=== PATIENT | female | born 1995 | race African-American/Black ===

== ENCOUNTER 2022-10-07 13:59 | Emergency (ER) | payer MEDICAID, OTHER ==
[~2022-10-07] VITALS: Ht 165.1 cm; Wt 61.0 kg
[2022-10-07] MEDS ORDERED: LEVETIRACETAM 1000MG PREMIX 100 ML IV ONE (15:00)
[2022-10-07 15:06] LABS: BASOPHILS % 0.1 % (0.0-2.0); EOSINOPHILS % 0.2 % (0.0-5.0); HEMATOCRIT. 37.2 % (36.0-48.0); HEMOGLOBIN. 12.6 g/dL (12.0-16.0); LYMPHOCYTES % 12.6 % (20.0-50.0); MEAN CORPUSCULAR HEMOGLOBIN 32.8 pg (28.0-32.0); MEAN CORPUSCULAR VOLUME 96.7 fL (81.0-99.0); MEAN PLATELET VOLUME 8.8 fl (7.4-10.4); MONOCYTES % 7.4 % (2.0-8.0); NEUTROPHILS % 79.7 % (40.0-76.0); PLATELET 128 x1000/uL (130-400); RED BLOOD CELL COUNT 3.85 mill/uL (4.2-5.4); RED CELL DISTRIBUTION WIDTH 16.4 % (11.6-14.6)
[2022-10-07 15:09] LABS: CHLORIDE 108 mEq/L (98-107)
[2022-10-07 15:25] LABS: HCG SCREEN NEGATIVE
[2022-10-07] MEDS ORDERED: ONDANSETRON HCL 4MG/2ML INJ IV NR (16:15)
[2022-10-07 16:30] VITALS: BP 129/77
[2022-10-07] MEDS ORDERED: KEPP500 MT (16:44)
== END 2022-10-07 17:12 | disposition home or self-care (01) ==
LOC: ER 13:59
DX: S00.511A Abrasion of lip, initial encounter (principal); G40.909 Epilepsy, unspecified, not intractable, without status epilepticus; F12.90 Cannabis use, unspecified, uncomplicated; Z88.6 Allergy status to analgesic agent; X58.XXXA Exposure to other specified factors, initial encounter; Y93.89 Activity, other specified; Y92.89 Other specified places as the place of occurrence of the external cause; Y99.8 Other external cause status
CPT/HCPCS: 36415; 80053; 84703; 85025; 96365; 99284; J1953; J2405; Z7610

== ENCOUNTER 2024-12-16 15:50 | Emergency (ER) | payer MEDICAID ==
[~2024-12-16] VITALS: Ht 167.6 cm; Wt 62.0 kg
[~2024-12-16 15:50] MED LIST: KEPP500 MT
[2024-12-16 15:52] VITALS: O2SAT 100
[2024-12-16] MEDS: VISCOUS LIDOCAINE 2% 15 ML UDC MM STA (16:53)
[2024-12-16] MEDS: KETOROLAC 30MG/ML VIAL IM ONE (16:53)
[2024-12-16] MEDS: TETRACAINE/BENZOCAINE/BUTAMBEN 20 GM SPRAY MM SCH (17:01)
[2024-12-16 17:21] LABS: CLARITY URINE CLOUDY (CLEAR); COLOR URINE DARK YELLOW (YELLOW); GLUCOSE URINE NEGATIVE (NEGATIVE); KETONES URINE 1+ (NEGATIVE); LEUKOCYTE ESTERASE URINE 1+ (NEGATIVE); NITRITE URINE NEGATIVE (NEGATIVE); OCCULT BLOOD URINE 3+ (NEGATIVE); PH URINE 6.0 (4.5-8.0); PROTEIN URINE 2+ (NEGATIVE); SPECIFIC GRAVITY URINE 1.030 (1.005-1.030); UROBILINOGEN URINE 2.0 E.U./dL (0.2-1.0)
[2024-12-16] MEDS: SODIUM CHLORIDE 0.9% 1,000 ML IV ONE ×2 (17:45→22:50)
[2024-12-16 18:08] LABS: HEMATOCRIT. 35.2 % (36.0-48.0); HEMOGLOBIN. 11.8 g/dL (12.0-16.0); MEAN PLATELET VOLUME 8.4 fl (7.4-10.4); PLATELET 132 x1000/uL (130-400); RED BLOOD CELL COUNT 3.61 mill/uL (4.2-5.4); RED CELL DISTRIBUTION WIDTH 15.6 % (11.6-14.6)
[2024-12-16 18:20] LABS: CREATININE 1.1 mg/dL (0.6-1.0); UREA NITROGEN BLOOD 10 mg/dL (9-23)
[2024-12-16 18:22] LABS: ASPARTATE AMINOTRANSFERASE 62 IU/L (<34); BILIRUBIN DIRECT 0.2 mg/dL (<=3.0); BILIRUBIN TOTAL 0.5 mg/dL (0.1-1.0); PROTEIN TOTAL 7.5 g/dL (6.0-8.3)
[2024-12-16 18:37] LABS: BACTERIA URINE 1+; RBC URINE TNTC /hpf (0-2); SQUAMOUS EPITHELIAL CELL URINE 1+ /lpf (RARE/1+)
[2024-12-16] MEDS ORDERED: POTASSIUM CHLORIDE 30 MEQ in DEXT 5%/0.9% NACL 985 ML IV SCH (19:00)
[2024-12-16 19:12] LABS: EOSINOPHILS % MANUAL 1.0 % (0.0-5.0); LYMPHOCYTES % MANUAL 35.0 % (20.0-60.0); MONOCYTES % MANUAL 14.0 % (2.0-8.0); NEUTROPHILS % MANUAL 50.0 % (45.0-75.0); PLATELET ESTIMATE NORMAL
[2024-12-16] MEDS: KCL 10MEQ/50ML X 3 FOR TOTAL KCL 30MEQ/150ML IV SCH (20:17)
[2024-12-16 20:40] VITALS: BP 145/68; PULSE 72; RESP 20; TEMP 37.3; O2SAT 100
[2024-12-17] MEDS ORDERED: AMOX200S10 MT (00:56)
[2024-12-17] MEDS ORDERED: IBUP-2458 MT (00:56)
[2024-12-17] MEDS ORDERED: ACET-2084 MT (00:56)
[2024-12-17] MEDS ORDERED: METR70GE27 VG (00:56)
== END 2024-12-17 01:13 | disposition home or self-care (01) ==
LOC: ER 15:50
DX: T28.0XXA Burn of mouth and pharynx, initial encounter (principal); F12.10 Cannabis abuse, uncomplicated; N39.0 Urinary tract infection, site not specified; E87.6 Hypokalemia; Z88.8 Allergy status to other drugs, medicaments and biological substances; Z79.899 Other long term (current) drug therapy; Z86.59 Personal history of other mental and behavioral disorders; X08.8XXA Exposure to other specified smoke, fire and flames, initial encounter; Y93.89 Activity, other specified; Y92.89 Other specified places as the place of occurrence of the external cause; Y99.8 Other external cause status
CPT/HCPCS: 80076; 80048; 81003; 83690; 85025; 87210; 36415; 96361; 96365; 96372; 99284; J1885; J3480; J7030; Z7610 ×2